=== PATIENT | male | born 1975 | race Two or more races ===

== ENCOUNTER 2019-06-09 23:32 | Emergency (ER) | payer MEDICAID ==
[~2019-06-09] VITALS: Ht 172.7 cm; Wt 84.0 kg
[2019-06-10] MEDS ORDERED: IBUPROFEN 600MG TABLET PO ONE (01:15)
[2019-06-10 01:30] VITALS: BP 128/91
== END 2019-06-10 01:38 | disposition home or self-care (01) ==
LOC: ER 23:32
DX: M79.642 Pain in left hand (principal); M25.532 Pain in left wrist; M25.522 Pain in left elbow; M79.645 Pain in left finger(s); V49.88XA Car occupant (driver) (passenger) injured in other specified transport accidents, initial encounter; Y93.89 Activity, other specified; Y92.89 Other specified places as the place of occurrence of the external cause; Y99.8 Other external cause status
CPT/HCPCS: 73080; 73110; 73130; 99285